=== PATIENT | female | born 2005 | race Two or more races ===

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

== ENCOUNTER 2025-02-16 21:45 | Emergency (ER) | payer SELFPAY ==
[~2025-02-16] VITALS: Ht 160 cm; Wt 81.3 kg
[~2025-02-16 21:45] MED LIST: LEVO500T91 PO
--- NOTE | 2025-02-16 23:25 | DVH ---
EXAM: XY CHEST TWO VIEWS ROUTINE CLINICAL HISTORY: sob TECHNIQUE: Frontal and lateral views of the chest WID: COMPARISON: Chest radiograph from 03/08/2022 FINDINGS: Lines and tubes: None Chest: The heart size and pulmonary vasculature is within normal limits. No pleural effusion, pneumothorax, or consolidation. The osseous structures are grossly intact. IMPRESSION: No acute cardiopulmonary abnormality.
[2025-02-17 00:10] VITALS: BP 119/73; PULSE 105; RESP 18; TEMP 99.2; O2SAT 96
[2025-02-17] MEDS ORDERED: METH4PAK PO (00:48)
[2025-02-17] MEDS ORDERED: AZIT-43 PO (00:48)
--- NOTE | 2025-02-17 00:48 | ED.PDOC ---
SOB-HPI Chief Complaint: Cough Time Seen by MD: 21:59 Reviewed notes: Nurses Notes, Medications, Allergies Information Source: Patient Mode of Arrival: Ambulatory Past Medical History PAST MEDICAL HISTORY: Denies Surgical History: Denies all surgeries PROGRAM SUPPORT ASSISTANT History: No Pertinent PROGRAM SUPPORT ASSISTANT History Social History Smoker: Non-Smoker Alcohol: Denies ETOH Use Drugs: Denies Drug Use X-Ray, Labs, Meds, VS Vital Signs Date Time Temp Pulse Resp B/P (MAP) Pulse Ox O2 Delivery O2 Flow Rate FiO2 02/17/25 00:10 99.2 105 18 119/73 (88) 96 99.2 02/16/25 22:10 99.0 100 18 146/81 (102) 97 99.0 02/16/25 22:10 18 97 Room Air* 0 21 Departure 1 Departure Time of Disposition: 00:47 Impression: Primary Impression: Bronchitis Disposition: 01 HOME / SELF CARE / HOMELESS Condition: Stable e-Prescriptions Methylprednisolone (Medrol Dosepak) 4 Mg Terry 4 MG PO UD for 6 Days, #21 TAB UAD Prov: CABRERA MORTENSEN 02/17/25 Azithromycin (Azithromycin) 250 Mg Tab 250 MG PO DAILY MDD 500 for 5 Days, #6 TAB 0 Refills 2 TABLETS ORALLY ON DAY ONE, THEN 1 TABLET ORALLY DAILY FOR 4 DAYS Prov: CABRERA MORTENSEN 02/17/25 Discharged With: Relative (Sibling) Critical Care Note Critical Care Time?: No Stability Stability form required: CABRERA Morrow February 17, 2025 00:48
== END 2025-02-17 01:47 | disposition home or self-care (01) ==
LOC: ER 21:45
DX: J40 Bronchitis, not specified as acute or chronic (principal)
CPT/HCPCS: 71046